=== PATIENT | male | born 1985 | race Caucasian/White ===

== ENCOUNTER 2019-08-26 13:33 | Emergency (ER) | payer BC, OTHER ==
[~2019-08-26] VITALS: Ht 172.7 cm; Wt 90.7 kg
[~2019-08-26 13:33] MED LIST: CEFDINIR300 MG PO; NAPROSYN500 MG PO; NOHOMEMEDICATIONS; NORCO 5-325 TA1 EACH PO; TAMSULOSIN HCL0.4 MG PO; ZOLOFT25 MG
[2019-08-26] MEDS ORDERED: SUPER THERAVIT1 EACH PO (13:46)
[2019-08-26] MEDS ORDERED: LEXAPRO5 MG PO (13:46)
[2019-08-26] MEDS ORDERED: AMOXICILLIN875 MG PO (15:06)
[2019-08-26 15:13] VITALS: BP 120/74
== END 2019-08-26 15:13 | disposition home or self-care (01) ==
LOC: ER 13:33
DX: J06.9 Acute upper respiratory infection, unspecified (principal); J02.9 Acute pharyngitis, unspecified; Z79.899 Other long term (current) drug therapy; Z87.442 Personal history of urinary calculi; Z87.891 Personal history of nicotine dependence